=== PATIENT | female | born 1970 | race Caucasian/White ===

== ENCOUNTER 2021-04-20 11:48 | Emergency (ER) | payer MEDICARE, BC ==
[2021-04-20 13:25] LABS: RED BLOOD COUNT 4.89 M/UL (4.00-5.10); WHITE BLOOD COUNT 19.5 K/UL (4.5-11.0)
[2021-04-20 13:45] LABS: BUN/CREATININE RATIO 9 (0-10)
[2021-04-20] MEDS ORDERED: CEPHALEXIN500 M1 PO (16:19)
[2021-04-20] MEDS ORDERED: BACTRIM DS TAB1 EACH PO (16:19)
[2021-04-20] MEDS ORDERED: ZOFRAN4 MG PO (16:19)
== END 2021-04-20 16:25 | disposition home or self-care (01) ==
LOC: ER1 11:48
PROVIDERS: Physician Assistant Medical
DX: N39.0 Urinary tract infection, site not specified (principal)
CPT/HCPCS: 80053; 81001; 85025; 99284

== ENCOUNTER → 2021-05-14 | Outpatient (CLI) | payer MEDICARE, BC ==
[~2021-05-14] MED LIST: BACTRIM DS TAB1 EACH PO; CEPHALEXIN500 M1 PO; ZOFRAN4 MG PO
== END ==
LOC: KOH-I 08:50
DX: R59.0 Localized enlarged lymph nodes (principal); R59.9 Enlarged lymph nodes, unspecified; R19.09 Other intra-abdominal and pelvic swelling, mass and lump
CPT/HCPCS: 76882

== ENCOUNTER → 2021-05-26 | Outpatient (CLI) | payer BC, MEDICARE ==
[~2021-05-26] MED LIST changes: +ACYCLOVIR; +ATENOLOL25 MG PO; +ATORVASTATIN CA10 MG PO; +CALCIUM 600; +CYCLOBENZAPRINE5 MG PO; +CYMBALTA60 MG PO; +DOCUSATE SODIU100 MG PO; +GABAPENTIN400 MG PO; +IBUPROFEN600 MG PO; +KLONOPIN TAB 00.5 MG PO; +LEVOTHYROXINE112 MC1 PO; +METFORMIN HCL500 MG PO; +MULTIPLE VITAM1 EACH PO; +OMEGA 3; +PHENERGAN 25 MG25 M1 PO; +TOPIRAMATE50 MG PO; +TRAMADOL HCL50 MG PO; +VITAMIN C1000 MG PO; +VITAMIN D350 MCG PO; +[UNRECOGNIZED DRUG - OTHER]
[2021-05-26 10:14] LABS: BUN/CREATININE RATIO 12 (0-10)
== END ==
LOC: OPSV2 08:58
PROVIDERS: Surgery
DX: Z01.812 Encounter for preprocedural laboratory examination (principal); R59.0 Localized enlarged lymph nodes
CPT/HCPCS: 80048

== ENCOUNTER → 2021-05-29 | Day surgery (SDC) | payer BC, MEDICARE ==
[~2021-05-29] MED LIST changes: +HYDROCODON-ACE1 EAC4 PO
== END | disposition home or self-care (01) ==
LOC: OR 06:53
DX: D36.0 Benign neoplasm of lymph nodes (principal); E78.5 Hyperlipidemia, unspecified; G47.30 Sleep apnea, unspecified; K76.0 Fatty (change of) liver, not elsewhere classified; M19.90 Unspecified osteoarthritis, unspecified site; E11.9 Type 2 diabetes mellitus without complications; E03.9 Hypothyroidism, unspecified; E55.9 Vitamin D deficiency, unspecified; F17.200 Nicotine dependence, unspecified, uncomplicated; F41.9 Anxiety disorder, unspecified; F32.A Depression, unspecified; Z88.6 Allergy status to analgesic agent; Z88.8 Allergy status to other drugs, medicaments and biological substances; Z79.1 Long term (current) use of non-steroidal anti-inflammatories (NSAID); Z79.2 Long term (current) use of antibiotics; Z79.84 Long term (current) use of oral hypoglycemic drugs; Z79.899 Other long term (current) drug therapy
CPT/HCPCS: 87070; J0690; J1100; J1885; J2250; J2405; J2704; J3010; J7120